=== PATIENT | female | born 1985 | race Caucasian/White ===

== ENCOUNTER 2018-10-03 01:52 | Emergency (ER) | payer OTHER ==
[~2018-10-03] VITALS: Ht 165.1 cm; Wt 52.7 kg
[2018-10-03 01:55] VITALS: TEMP 97.7
[2018-10-03] MEDS ORDERED: MULTI VITAMINS1 TAB PO (02:07)
[2018-10-03] MEDS ORDERED: NATURAL ST. JO300 MG PO (02:21)
[2018-10-03 02:22] LABS: COLLECTION METHOD CLEAN CATCH
[2018-10-03 02:27] LABS: BASO % 0.4 % (0.0-2.0); EOS # 0.4 (0.0-0.7); EOS % 4.2 % (0-4.0); GRAN # 3.3 (1.4-6.5); GRAN % 39.3 % (42.2-75.2); HEMATOCRIT 39.4 % (37.0-47.0); HEMOGLOBIN 13.8 g/dl (12.5-16.0); LYMPH # 4.1 (1.2-3.4); LYMPH % 49.2 % (20.0-51.0); MEAN CELL VOLUME 92 fl (80.0-100.0); MEAN CORPUSCULAR HEMOGLOBIN 32 pg (27.0-31.0); MEAN CORPUSCULAR HGB CONC 35 g/dl (33.0-37.0); MONO # 0.6 (0.1-0.6); MONO % 6.8 % (1.7-9.3); PLATELET COUNT 206 K/mm3 (130-400); RED BLOOD COUNT 4.27 M/mm3 (4.10-5.30); REDCELL DISTRIBUTION WIDTH-CV 11.6 % (11.5-14.5)
[2018-10-03 02:30] LABS: MUCOUS Present /lpf; PH 5 (5-8); SQUAMOUS EPITHELIAL 0-2 /hpf; URINE APPEARANCE Clear; URINE BACTERIA None Seen /hpf; URINE BILIRUBIN Negative (NEGATIVE); URINE BLOOD 1+ (NEGATIVE); URINE COLOR Yellow; URINE GLUCOSE Negative (NEGATIVE); URINE KETONE Negative (NEGATIVE); URINE LEUKOCYTE ESTERASE Negative (NEGATIVE); URINE NITRATE Negative (NEGATIVE); URINE PROTEIN(semi-quant) Negative (NEGATIVE); URINE RBC 0-2 /hpf; URINE UROBILINOGEN Negative (NEGATIVE)
[2018-10-03 02:42] LABS: ALANINE AMINOTRANSFERASE 36 U/L (9-52); ALBUMIN 4.3 gm/dL (3.5-5.0); ALKALINE PHOSPHATASE 77 U/L (50-136); ANION GAP 7 mmol/L (7-16); AST,SGOT 22 U/L (15-37); BILIRUBIN,TOTAL 0.6 mg/dL (0.0-1.0); BLOOD UREA NITROGEN 17 mg/dL (7-17); CALCIUM 9.3 mg/dL (8.4-10.2); CARBON DIOXIDE 25 mmol/L (22-30); CHLORIDE 108 mmol/L (98-107); CREATININE, serum 0.68 mg/dL (0.52-1.25); GLUCOSE 96 mg/dL (74-106); POTASSIUM 3.8 mmol/L (3.4-5.0); SODIUM 140 mmol/L (137-145); TOTAL PROTEIN 7.5 gm/dL (6.4-8.2)
[2018-10-03 02:43] LABS: C-REACTIVE PROTEIN < 0.5 mg/dL (0.0-0.9)
[2018-10-03 03:55] VITALS: BP 133/76; PULSE 64
== END 2018-10-03 03:58 | disposition home or self-care (01) ==
LOC: COL.ER 01:52
PROVIDERS: Nurse Practitioner
DX: R10.31 Right lower quadrant pain (principal)

== ENCOUNTER 2018-10-05 19:15 | Emergency (ER) | payer OTHER ==
[~2018-10-05] VITALS: Ht 165.1 cm; Wt 52.7 kg
[~2018-10-05 19:15] MED LIST: MULTI VITAMINS1 TAB PO; NATURAL ST. JO300 MG PO
[2018-10-05 19:18] VITALS: TEMP 99.3
[2018-10-05 19:43] LABS: BASO % 0.3 % (0.0-2.0); EOS # 0.2 (0.0-0.7); EOS % 2.4 % (0-4.0); GRAN % 56.8 % (42.2-75.2); HEMATOCRIT 40.4 % (37.0-47.0); HEMOGLOBIN 14.4 g/dl (12.5-16.0); MEAN CELL VOLUME 91 fl (80.0-100.0); MEAN CORPUSCULAR HEMOGLOBIN 32 pg (27.0-31.0); MEAN CORPUSCULAR HGB CONC 36 g/dl (33.0-37.0); MEAN PLATELET VOLUME 9.8 fl (7.4-10.4); MONO # 0.6 (0.1-0.6); MONO % 6.3 % (1.7-9.3); PLATELET COUNT 225 K/mm3 (130-400); RED BLOOD COUNT 4.46 M/mm3 (4.10-5.30); REDCELL DISTRIBUTION WIDTH-CV 11.2 % (11.5-14.5)
[2018-10-05 20:13] LABS: ALANINE AMINOTRANSFERASE 31 U/L (9-52); ALBUMIN 4.9 gm/dL (3.5-5.0); ALKALINE PHOSPHATASE 83 U/L (50-136); ANION GAP 8 mmol/L (7-16); AST,SGOT 35 U/L (15-37); BILIRUBIN,TOTAL 1.4 mg/dL (0.0-1.0); BLOOD UREA NITROGEN 17 mg/dL (7-17); CALCIUM 9.8 mg/dL (8.4-10.2); CARBON DIOXIDE 26 mmol/L (22-30); CHLORIDE 105 mmol/L (98-107); CREATININE, serum 0.72 mg/dL (0.52-1.25); GLUCOSE 104 mg/dL (74-106); POTASSIUM 3.5 mmol/L (3.4-5.0); SODIUM 139 mmol/L (137-145); TOTAL PROTEIN 8.6 gm/dL (6.4-8.2)
[2018-10-05 20:14] LABS: C-REACTIVE PROTEIN < 0.5 mg/dL (0.0-0.9)
[2018-10-05 20:36] LABS: COLLECTION METHOD CLEAN CATCH
[2018-10-05 20:45] LABS: PH 6 (5-8); SQUAMOUS EPITHELIAL None Seen /hpf; URINE APPEARANCE Clear; URINE BACTERIA None Seen /hpf; URINE BILIRUBIN Negative (NEGATIVE); URINE BLOOD Negative (NEGATIVE); URINE COLOR Straw; URINE GLUCOSE Negative (NEGATIVE); URINE KETONE Negative (NEGATIVE); URINE LEUKOCYTE ESTERASE Negative (NEGATIVE); URINE NITRATE Negative (NEGATIVE); URINE PROTEIN(semi-quant) Negative (NEGATIVE); URINE RBC 0-2 /hpf; URINE UROBILINOGEN Negative (NEGATIVE)
[2018-10-05] MEDS ORDERED: NORCO 325 MG-51 TAB PO (22:35)
[2018-10-05] MEDS ORDERED: ZOFRAN 4MG T4 MG/TAB PO (22:35)
[2018-10-06 00:03] VITALS: BP 124/71; PULSE 66
== END 2018-10-06 00:03 | disposition home or self-care (01) ==
LOC: COL.ER 19:15
PROVIDERS: Emergency Medicine
DX: N83.201 Unspecified ovarian cyst, right side (principal)
CPT/HCPCS: J1170; J1200; J1885; J2405; J7030; Q9967